=== PATIENT | male | born 1970 | race African-American/Black ===

== ENCOUNTER 2024-09-24 06:35 | Emergency (ER) | payer SELFPAY ==
[~2024-09-24] VITALS: Ht 190.5 cm; Wt 110.0 kg
[2024-09-24 06:48] VITALS: TEMP 97.9
[2024-09-24] MEDS: KETOROLAC TROMETHAMINE 30 MG/ML VIAL IVP ONE (07:48)
[2024-09-24 07:56] LABS: PLATELET COUNT (AUTO) 288 K/uL (150-450); RED BLOOD CELL COUNT(AUTO) 4.17 MIL/uL (4.50-5.90); RED CELL DISTRIBUTION WIDTH 12.3 % (11.5-14.5); WHITE BLOOD COUNT (AUTO) 10.0 K/uL (4.5-11.0)
[2024-09-24 08:09] LABS: CALCIUM, TOTAL 9.2 mg/dL (8.8-10.5); CREATININE 0.92 mg/dL (0.60-1.30); GLOMERULAR FILTR. RATE CALC > 60 mL/min (>60); GLUCOSE,RANDOM 103 mg/dL (70-110); SODIUM SERUM 139 mmol/L (136-145); UREA NITROGEN, BLOOD 8 mg/dL (7-18)
[2024-09-24 09:56] LABS: APPEARANCE,URINE CLEAR (CLEAR); GLUCOSE, URINE (UA) NEGATIVE (NEGATIVE); LEUKOCYTE ESTERASE ,URINE NEGATIVE (NEGATIVE); NITRATE,URINE NEGATIVE (NEGATIVE); OCCULT BLOOD,URINE NEGATIVE (NEGATIVE); SPECIFIC GRAVITIY, URINE 1.011 (1.003-1.030)
[2024-09-24 10:32] VITALS: BP 120/68; PULSE 69; RESP 16; O2SAT 97
[2024-09-24] MEDS ORDERED: METH-812 PO (10:37)
== END 2024-09-24 11:03 | disposition home or self-care (01) ==
LOC: EMS 06:52
DX: S29.012A Strain of muscle and tendon of back wall of thorax, initial encounter (principal); F17.210 Nicotine dependence, cigarettes, uncomplicated; F12.90 Cannabis use, unspecified, uncomplicated; X58.XXXA Exposure to other specified factors, initial encounter; Y93.89 Activity, other specified; Y92.89 Other specified places as the place of occurrence of the external cause; Y99.8 Other external cause status
CPT/HCPCS: 99284; 96374; 71045; 80048; 81001; 83690; 85025; 36415; J1885